=== PATIENT | female | born 1970 | race Caucasian/White ===

== ENCOUNTER 2023-09-17 11:39 | Outpatient (REF) | payer OTHER, SELFPAY ==
[2023-09-17 12:57] LABS: Appearance Urine Clear; Color Urine Yellow; Glucose Urine UA Negative (Negative); Leukocyte Esterase Urine Negative (Negative); Nitrite Urine Negative (Negative); Urine Blood Negative (Negative); Urine Ketones Negative (Negative); Urine Protein Negative (Neg-Trace)
== END 2023-09-17 11:40 | disposition home or self-care (01) ==
LOC: HO.HMGCLDS 11:39
PROVIDERS: PCP Internal Medicine; Visit Provider Internal Medicine
DX: R30.0 Dysuria (principal)
CPT/HCPCS: 81003

== ENCOUNTER 2023-11-16 07:52 | Outpatient (AMB) | payer OTHER, SELFPAY ==
--- NOTE | 2023-11-16 08:00 | MHC.PC.OV ---
Vital Signs 11/16/23 08:09 Height 5 ft 5.5 in Weight 143 lb BMI 23.4 BP 92/64 Blood Pressure Location Rt brachial Position Sitting Pulse 65 Pulse Source Pulse Oximeter Pulse Oximetry (%) 143 H Oxygen Delivery Method Room Air Intake Visit Reasons: PE Intake Note: Pt is here today for her PE: Colonoscopy 05/07/19: [place] 10/20/23 [facility] Care: Mammogram is scheduled for 11/17/23 [place] Allergies melon [MELON] Allergy (Severe, Unverified 11/16/23 08:18) ANAPHYLAXIS nitrofurantoin [From Macrobid] Allergy (Intermediate, Verified 11/16/23 08:18) Rash 1st Base Allergy (Unknown, Uncoded 11/16/23 08:18) anaphylaxis Medication List - Last Reconciled 11/16/23 by Toyin Ibarra MD mecobalamin (vitamin B12) mcg PO bhaxokgmenvo-adv-ektn-FA-vit K 45 mg iron- 800 mcg-120 mcg (Bariatric Multivitamins) caps PO semaglutide (weight loss) (Wegovy) mg subcut Tobacco use date assessed: 11/16/23 Dental Screening Dental Screen Date: 11/16/23 Did you have a dental visit in the last 12 months?: Yes Did you have a dental problem in the last 6 months where you did not have access to dental care?: No Was dental information given to patient?: Patient has dentist HPI PE HPI Details 53-year-old lady here today for physical exam. She gets her screening mammogram at [place], and has an appointment in a.m. for her repeat mammogram. She goes to [facility] for her cervical cancer screening , last done 10/20/23. Her last screening colonoscopy was [address] Hensley, which showed presence of diverticulosis, repeat colonoscopy due again in 5 years due to positive family history. She states that her bariatric surgery in [place] has referred her to [place] for an upper endoscopy and a screening colonoscopy for this year. She is up-to-date with all her vaccinations including COVID booster, flu shot shingles vaccine and Tdap. She had revision of her Homar-en-Y done at [facility] in [place], due to dumping syndrome and elevated blood sugars previously was on Saxenda to help with weight loss, later changed to Wegovy , which has helped her lose weight, currently prescribed by her bariatric surgeon. Only side effects she had from the medication was constipation. Has been feeling well, currently following a healthy diet and exercising. Only problem she has is that she has frequent interruptions in her sleep, would wake up 2-3 times at night. Has tried zolpidem in the past but it made her very drowsy. . 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 Mother CVD (cardiovascular disease) Cancer Aneurysm, ascending aorta Sister Substance use disorder Sister No problems noted. Social History Housing: House Patient Tobacco Use Status: Never used Tobacco e-Cigarette/Vaping Use: Never Used Current occupational status: employed Cognitive needs: No Hearing needs: No Vision needs: Yes Female Reproductive History Menstrual Date of last pap smear: 10/20/23 (Done in [place]) Questionnaire PHQ-9 Over the last 2 weeks, how often have you been bothered by any of the following problems? 1. Little interest or pleasure in doing things: not at all 2. Feeling down, depressed, or hopeless: not at all 3. Trouble falling or staying asleep, or sleeping too much: more than half the days 4. Feeling tired or having little energy: not at all 5. Poor appetite or overeating: not at all 6. Feeling bad about yourself - or that you are a failure or have let yourself or your family down: not at all 7. Trouble concentrating on things, such as reading the newspaper or watching television: not at all 8. Moving or speaking so slowly that other people could have noticed. Or the opposite - being so fidgety or restless that you have been moving around a lot more than usual: not at all 9. Thoughts that you would be better off or of hurting yourself in some way: not at all Total score: 2 Depression Screening Interpretation: Negative Depression Screening Done: Yes 91841 - PHQ-9 Billing: Yes Source: Developed by Drs. El Adair, Opal Awad, Abraham Parker and colleagues, with an educational emily from [employer]. Thrive Questionnaire Date Thrive assessed: 11/16/23 I am a: Patient What is your living situation today?: I have a steady place to live Within the past 12 months, did the food you bought not last and you didn't have the money to get more?: Never true Within the past 12 months, did you worry whether your food would run out before you got money to buy more?: Never true Do you have trouble paying for medicines?: No Do you have trouble getting transportation to medical appointments?: No Do you have trouble paying your heating and electricity bill?: No Do you have trouble taking care of your child, family member or friend?: No Do you have trouble with day-to-day activities such as bathing, preparing meals, shopping, managing finances, etc.?: No Are you currently unemployed and looking for a job?: No Are you interested in more education?: No Please select the resources that you would like help with: None THRIVE Score: 0 AUDIT C Alcohol Use Questionnaire (AUDIT-C) 1. How often do you have a drink containing alcohol?: Never 3. How often do you have six or more drinks on one occasion?: Never Total Score: 0 PINKY-7 AMB Questionnaire PINKY-7 Date PINKY - 7 assessed: 11/16/23 Feeling nervous, anxious, or on edge: 1 = Several days Not being able to stop or control worryin = Not at all Worrying too much about different things: 1 = Several days Trouble relaxin = Several days Being so restless that it is hard to sit still: 0 = Not at all Becoming easily annoyed or irritable: 0 = Not at all Feeling afraid as if something awful might happen: 1 = Several days Total PINKY-7 score (0-4 normal; 5-9 mild; 10-14 moderate; 15-21 severe): 4 Source: Developed by Drs. El Adair, Opal Awad, Abraham Parker and colleagues, with an educational emily from [employer]. PINKY-7 Assessment Billing PINKY-7 Assessment Tool: PINKY-7 Assessment 82343 Review of Systems Const Denies body aches, Reports difficulty sleeping (Has interrupted sleep, keeps waking up at least 2-3 times at night), Denies fatigue, Denies fever(s), Denies headache(s) and Denies weakness Eyes Details: Goes to [facility] Denies change in vision, Denies eye discharge and Denies itchy eyes ENT Denies dizziness, Denies headache(s), Denies nasal congestion, Denies nasal discharge and Denies sore throat Card Denies chest pain, Denies lightheadedness, Denies palpitations and Denies dyspnea Resp Denies chest congestion, Denies cough, Denies dyspnea and Denies wheezing GI Denies abdominal pain, Reports constipation (Occasional) and Denies heartburn Denies hematuria, Denies urinary frequency, Denies dysuria and Denies urinary urgency Musc Reports no additional complaints Skin/Breast Denies breast pain, Denies breast mass, Denies lesions and Denies rash Neuro Denies dizziness, Denies headache(s) and Denies weakness Psych Reports no additional complaints Endo Denies fatigue, Denies polydipsia, Denies polyuria and Denies palpitations Tico/Lymph Denies easy bruising Aller/Immun Denies itchy eyes, Denies seasonal rhinorrhea and Denies wheezing Physical exam (Primary Care) Vital Signs: Last Vital Signs Pulse 65 11/16/23 08:09 BP 92/64 11/16/23 08:09 Pulse Ox 143 H 11/16/23 08:09 Oxygen Delivery Method Room Air 11/16/23 08:09 BMI result Body Mass Index 23.4 Tobacco/Smoking Status: Tobacco use Status Tobacco use date assessed 11/16/23 11/16/23 08:11 Patient Tobacco Use Status Never used Tobacco 11/16/23 08:04 e-Cigarette/Vaping Use Never Used 11/16/23 08:04 Depression Screening Interpretation: Negative Thrive Assessment: Date of Thrive Assessment Date Thrive assessed 11/16/23 11/16/23 08:04 Const General: no acute distress and alert Nutritional Appearance: average body habitus Orientation/consciousness: patient oriented x3 HENMT Head: Yes normocephalic and Yes atraumatic Ears: external ears normal, TM's normal bilaterally and EAC's normal General nose exam: Normal external nose present and No nasal discharge present Face and sinus: Yes face symmetric Mouth: Normal oral and palatal mucosa present, lip normal, tongue normal, oropharynx normal and moist mucous membranes Eyes General: appearance normal, both eyes and all related structures Eyelids: Yes eyelids normal Conjunctivae: conjunctivae normal Sclerae: sclerae normal Pupils: Equal, round and reactive pupils present EOM: EOMs intact bilaterally Neck Neck: Yes full ROM, Yes no lymphadenopathy and Yes supple Thyroid: Thyroid normal Chest Breast/axilla inspection: normal inspection of the breasts Breast/axilla palpation: normal palpation of the breasts Resp Effort & Inspection: normal respiratory effort and able to speak in complete sentences Auscultation: clear to auscultation bilaterally Cardio Rate: regular rate Rhythm: regular rhythm Heart sounds: S1 normal heart sound present and S2 normal heart sound present GI Palpation (GI): Soft to palpation, nontender, no guarding and no masses Auscultation: normal bowel sounds General: Yes no CVA tenderness Back/Spine/Pelvis Back: no CVA tenderness and No back tenderness Skin General skin exam: no rashes or lesions noted Neuro General: patient oriented x3, gait normal, moves all extremities, Normal light touch and pain sensation, no focal motor deficits and CN's II-XI intact bilaterally Cranial nerves: Yes Equal, round and reactive pupils present Cognition (Neuro): normal cognition Gait exam (Neuro): Normal gait present Motor exam (neuro): 5/5 motor strength present throughout Extrem General: Yes normal to inspection, Yes full ROM, Yes no joint enlargement, Yes no pedal edema and Yes normal gait Psych Appearance: grossly normal and well kempt Mental Status: mental status grossly normal Speech and movement: Normal speech and movement present Affect: normal affect Attitude: cooperative Thought process: Normal thought process present Thought content: Normal thought content present Assessment and Plan Assessment & Plan (1) Annual visit for general adult medical examination with abnormal findings: Code(s): Z00.01 - Encounter for general adult medical examination with abnormal findings Plan: Patient states that her bariatric surgeon has already ordered labs which includes sugar cholesterol vitamin-D and B12, requested copy of results as soon as available. Continue regular dental visit every 6 months and regular eye exams, goes to my eye doctor in [place]. Take adequate calcium in diet and vitamin-D 3 at 2000 IU per cap once a day, in addition to weight-bearing exercises to help maintain good muscle tone and weight control. Instructed to do self-breast exam, and is up-to-date with her yearly mammogram, has an appointment already scheduled in a.m.. 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
[2023-11-16 08:09] VITALS: BP 92/64; PULSE 65; O2SAT 143; BMI 23.4
== END 2023-11-16 09:34 | disposition home or self-care (01) ==
PROVIDERS: PCP Internal Medicine; Visit Provider Internal Medicine
DX: Z00.01 Encounter for general adult medical examination with abnormal findings (principal); G47.9 Sleep disorder, unspecified; Z86.39 Personal history of other endocrine, nutritional and metabolic disease
CPT/HCPCS: 99213; 99396

== ENCOUNTER 2024-03-01 09:46 | Outpatient (AMB) | payer OTHER, SELFPAY ==
--- NOTE | 2024-03-01 09:56 | A.OFFVIS_ITS ---
Vital Signs 03/01/24 10:05 Height 5 ft 5.5 in Weight 150 lb BMI 24.6 BP 90/70 Blood Pressure Location Lt brachial Position Sitting Pulse 72 Pulse Source Pulse Oximeter Pulse Oximetry (%) 100 Oxygen Delivery Method Room Air Intake Visit Reasons: INP-Sleep disorder-CONF Intake Note: Patient presents for sleep disorder. Difficulty staying at sleep during the night. Wakes up to 3x to 4x a night. Vivid dreams regularly. Restless feet occasionally . Allergies melon [MELON] Allergy (Severe, Verified 03/01/24 10:04) ANAPHYLAXIS nitrofurantoin [From Macrobid] Allergy (Intermediate, Verified 03/01/24 10:04) Rash 1st Base Allergy (Unknown, Uncoded 11/16/23 08:18) anaphylaxis Medication List - Last Reconciled 03/01/24 by Nathalie Aguilar, CHAR mecobalamin (vitamin B12) mcg PO vfhtebrwikag-xqz-tfqt-FA-vit K 45 mg iron- 800 mcg-120 mcg (Bariatric Multivitamins) caps PO semaglutide (weight loss) (Wegovy) mg subcut HPI Comments Details: 53-yr-old female presents for new in-person patient visit for sleep consultation. She reports she has always been a light sleeper, prone to fragmented sleep, vivid dreams. This worsened about 10 yrs ago. She is not sure why, but she had undergone gastric bypass surgery around this time. She has tried a few sleep medications- ambien 5mg- ineffective, ambien 10mg x's 1 was effective, lunesta- ineffective, lorazepam- ineffective. Also tried doxepin 6mg x's 1- caused am grogginess. Melatonin ER 1/2 hr before bed- ineffective. Otherwise, she has been noticing worsening balance over the last few years. She does not think she could do a tandem walk. Denies falls, numbness/tingling, or h/o anemia. Sleep questionnaire: Have you ever been diagnosed with a sleep disorder? No Have you ever had a sleep study in the past? No Have you ever been treated for a sleep disorder? Do you take medications for a sleep disorder? None Do you snore? Denies Do you wake up gasping at night? No Do you have episodes of apneas? No If yes, are they witnessed? No Do you have episodes of nocturnal chest pain or dyspnea? No Do you have difficulty initiating sleep? No Do you have difficulty maintaining sleep? Yes- wakes up every 90 minutes or so- can fall back asleep. Do you wake up tired? I just not to . Do you have headaches upon awakening? No Do you wake up with dry mouth or throat? No Do you have GERD? No Do you have daytime tiredness or fatigue? Midday or end of work tiredness. Do you have nocturnal leg cramps? No Do you have symptoms of restless legs? Restless feet- in bed. Denies creepy crawling sensation. Do you act out your dreams? Denies Other parasomnias: Denies Vivid dreams: Yes, very vivid, can dream quickly upon falling asleep at night. Sleep hygiene questionnaire: What is your usual sleep routine? Usual bedtime is at 10pm; Usual wakeup time is at 6:15am. Do you take naps? No naps. Will rest for 1/2 hr after work at times. Is your sleep environment cool, dark, and quiet? Yes Do you exercise? Exercises after work- treadmill, light weight resistance. Do you take caffeine or other stimulants? A cup of coffee in the morning. Do you use electronics in bed? 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 What is your work schedule? 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 Hypersomnolence questionnaire: Do you easily fall asleep when inactive? Can easily doze off- rests her eyes. Have you ever had episodes of sudden weakness? No Have you ever had episodes of sudden weakness associated with strong emotions? 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 Mother CVD (cardiovascular disease) Cancer Aneurysm, ascending aorta Sister Substance use disorder Sister No problems noted. Social History Housing: House Patient Tobacco Use Status: Never used Tobacco e-Cigarette/Vaping Use: Never Used Current occupational status: employed Cognitive needs: No Hearing needs: No Vision needs: Yes Review of Systems Const All systems reviewed & are unremarkable except as noted in HPI and below GI Reports constipation Psych Reports anxiety Physical Exam Vital Signs: Last Vital Signs Pulse 72 03/01/24 10:05 BP 90/70 03/01/24 10:05 Pulse Ox 100 03/01/24 10:05 Oxygen Delivery Method Room Air 03/01/24 10:05 BMI result Body Mass Index 24.6 Const General: no acute distress Orientation/consciousness: patient oriented x3 HEENT Other: Mallampati stage III Resp Effort & Inspection: able to speak in complete sentences Neuro General: patient oriented x3 Psych Mental Status: mental status grossly normal Speech and movement: Clear speech present Attitude: cooperative Telehealth Telehealth Location of provider rendering services: practice address Location of patient: address on file Patient Identification confirmed using: Name, : Yes Telehealth method: voice only Patient verbally consented to treatment: Yes Patient verbally consented to billing insurance company: Yes Patient informed of any privacy concerns related to visit: Yes Assessment & Plan Assessment & Plan (1) 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 If HST does not show sleep apnea, will schedule pt for in-lab PSG, ? MSLT. Pt may benefit from reading information on optimizing sleep hygiene- list of CBTi/sleep hygiene resources shared w/ pt. Monitor balance difficulties. Case d/w Dr Misty Metzger. 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 G47.9 Excessive daytime sleepiness G47.19 Sleep difficulties G47.9 [place] Sleepiness Scale Questions Sitting and reading: slight chance of dozing Watching TV: high chance of dozing Sitting inactive in a theater, movie etc.: moderate chance of dozing As a passenger in a car for an hour without break: moderate chance of dozing Lying down in the afternoon when circumstances permit: moderate chance of dozing Sitting and talking to someone: would never doze Sitting quietly after lunch without alcohol: moderate chance of dozing In a car, while stopped for a few minutes in the traffic: would never doze ESS < 10: normal, ESS > 12: pathologic: 12
[2024-03-01 10:05] VITALS: BP 90/70; PULSE 72; O2SAT 100; BMI 24.6
== END 2024-03-01 11:16 | disposition home or self-care (01) ==
PROVIDERS: PCP Internal Medicine; Visit Provider Nurse Practitioner Family
DX: G47.9 Sleep disorder, unspecified (principal); G47.19 Other hypersomnia
CPT/HCPCS: 99204

== ENCOUNTER → 2024-03-01 09:46 | Outpatient (BNVA) | payer OTHER, SELFPAY | PROVIDERS: PCP Internal Medicine; Visit Provider Nurse Practitioner Family ==

== ENCOUNTER → 2024-05-02 07:57 | Outpatient (REF) | payer OTHER, SELFPAY | LOC: HO.SL 07:57 | PROVIDERS: Visit Provider Nurse Practitioner Family | DX: G47.9 Sleep disorder, unspecified (principal); G47.19 Other hypersomnia; R06.83 Snoring | CPT/HCPCS: 95806 ==

== ENCOUNTER → 2024-05-02 08:05 | Outpatient (BNV) | payer OTHER, SELFPAY | PROVIDERS: Visit Provider Psychiatry & Neurology Neurology | DX: R06.83 Snoring (principal) | CPT/HCPCS: 95806 ==

== ENCOUNTER 2025-02-28 10:08 | Outpatient (AMB) | payer OTHER, SELFPAY ==
--- NOTE | 2025-02-28 10:15 | MHC.PC.OV ---
Vital Signs 02/28/25 10:17 Height 5 ft 5.5 in Weight 158 lb BMI 25.9 BP 102/84 Blood Pressure Location Lt brachial Position Sitting Respiration 12 Pulse 66 Pulse Source Pulse Oximeter Temp 98.2 F Temp Source Oral Pulse Oximetry (%) 98 Oxygen Delivery Method Room Air Intake Visit Reasons: PE Intake Note: Pt is here today for her PE Allergies melon [MELON] Allergy (Severe, Verified 02/28/25 10:42) ANAPHYLAXIS nitrofurantoin [From Macrobid] Allergy (Intermediate, Verified 02/28/25 10:42) Rash 1st Base Allergy (Unknown, Uncoded 02/28/25 10:42) anaphylaxis Medication List - Last Reconciled 02/28/25 by Toyin Ibarra MD mecobalamin (vitamin B12) mcg PO kvcbhifhwnzk-oqb-queb-FA-vit K 45 mg iron- 800 mcg-120 mcg (Bariatric Multivitamins) caps PO semaglutide (weight loss) (Wegovy) mg subcut Tobacco use date assessed: 02/28/25 Dental Screening Dental Screen Date: 02/28/25 Did you have a dental visit in the last 12 months?: Yes Did you have a dental problem in the last 6 months where you did not have access to dental care?: No Was dental information given to patient?: Patient has dentist HPI PE HPI Details 58-year-old lady here today for her physical exam. She is up-to-date with her screening mammogram [facility] the [facility] in [place] with last mammogram done November 2024 with benign findings. She goes to Dr. Carolina Hope's for her routine Pap and pelvic exam, last done a year ago per patient which came back with negative findings, copy of results requested. She also states that she had her colonoscopy done in clinic at last year which showed benign findings, copy of results requested . 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 Mother CVD (cardiovascular disease) Cancer Aneurysm, ascending aorta Sister Substance use disorder Sister No problems noted. Social History Housing: House Patient Tobacco Use Status: Never used Tobacco e-Cigarette/Vaping Use: Never Used Current occupational status: employed Cognitive needs: No Hearing needs: No Vision needs: Yes Questionnaire PHQ-9 Over the last 2 weeks, how often have you been bothered by any of the following problems? 1. Little interest or pleasure in doing things: not at all 2. Feeling down, depressed, or hopeless: not at all 3. Trouble falling or staying asleep, or sleeping too much: several days 4. Feeling tired or having little energy: not at all 5. Poor appetite or overeating: not at all 6. Feeling bad about yourself - or that you are a failure or have let yourself or your family down: several days 7. Trouble concentrating on things, such as reading the newspaper or watching television: several days 8. Moving or speaking so slowly that other people could have noticed. Or the opposite - being so fidgety or restless that you have been moving around a lot more than usual: not at all 9. Thoughts that you would be better off or of hurting yourself in some way: not at all Total score: 3 Depression Screening Interpretation: Negative Depression Screening Done: Yes 31283 - PHQ-9 Billing: Yes Source: Developed by Drs. El Adair, Opal Awad, Abraham Parker and colleagues, with an educational emily from [employer]. Thrive Questionnaire Date Thrive assessed: 02/22/25 I am a: Patient What is your living situation today?: I have a steady place to live Within the past 12 months, did the food you bought not last and you didn't have the money to get more?: Never true Within the past 12 months, did you worry whether your food would run out before you got money to buy more?: Never true Do you have trouble paying for medicines?: No Do you have trouble getting transportation to medical appointments?: No Do you have trouble paying your heating and electricity bill?: No Do you have trouble taking care of your child, family member or friend?: No Do you have trouble with day-to-day activities such as bathing, preparing meals, shopping, managing finances, etc.?: No Are you currently unemployed and looking for a job?: No Are you interested in more education?: No Please select the resources that you would like help with: None Currently or been in a relationship where the following occur: No concerns reported THRIVE Score: 0 AUDIT C Alcohol Use Questionnaire (AUDIT-C) 1. How often do you have a drink containing alcohol?: Monthly or less 2. How many drinks containing alcohol do you have on a typical day when you are drinking?: 1 or 2 3. How often do you have six or more drinks on one occasion?: Never Total Score: 1 PINKY-7 AMB Questionnaire PINKY-7 Date PINKY - 7 assessed: 02/28/25 Feeling nervous, anxious, or on edge: 3 = Nearly every day Not being able to stop or control worryin = More than half the days Worrying too much about different things: 2 = More than half the days Trouble relaxin = Nearly every day Being so restless that it is hard to sit still: 0 = Not at all Becoming easily annoyed or irritable: 1 = Several days Feeling afraid as if something awful might happen: 2 = More than half the days Total PINKY-7 score (0-4 normal; 5-9 mild; 10-14 moderate; 15-21 severe): 13 Source: Developed by Drs. El Adair, Opal Awad, Abraham Parker and colleagues, with an educational emily from [employer]. PINKY-7 Assessment Billing PINKY-7 Assessment Tool: PINKY-7 Assessment 17061 Review of Systems Const Reports no additional complaints Eyes Details: [facility] in [place], wears reading glasses ENT Details: Dental prophylaxis every 6 month Reports no additional complaints Card Reports no additional complaints Resp Reports no additional complaints GI Details: 04/17/[address] [place] normal per patient Reports no additional complaints Details: last pap smear 2023 , Dr Carolina Adkins in [place] in [place], has appt next month Reports no additional complaints Musc Reports no additional complaints Skin/Breast Denies breast pain, Denies breast mass and Denies rash Neuro Reports no additional complaints Psych Reports as per HPI Endo Reports no additional complaints Tico/Lymph Reports no additional complaints Aller/Immun Reports no additional complaints Physical exam (Primary Care) Vital Signs: Last Vital Signs Temp 98.2 F 02/28/25 10:17 Pulse 66 02/28/25 10:17 Resp 12 02/28/25 10:17 BP 102/84 02/28/25 10:17 Pulse Ox 98 02/28/25 10:17 Oxygen Delivery Method Room Air 02/28/25 10:17 BMI result Body Mass Index 25.9 Tobacco/Smoking Status: Tobacco use Status Tobacco use date assessed 02/28/25 02/28/25 10:19 Patient Tobacco Use Status Never used Tobacco 02/28/25 10:19 e-Cigarette/Vaping Use Never Used 02/28/25 10:19 PHQ-9: PHQ-9 Score PHQ-9: Total score 4 02/28/25 12:30 Depression Screening Interpretation: Negative Thrive Assessment: Date of Thrive Assessment Date Thrive assessed 02/22/25 02/28/25 10:19 Currently or been in a relationship where the following occur: No concerns reported Advance Care Planning discussion: Completed/Scanned Date of discussion: 02/28/25 Who was present: Patient Forms completed: Health Care Proxy Time spent: 16-45 minutes Actual minutes spent: 2 Const General: no acute distress and alert Nutritional Appearance: average body habitus Orientation/consciousness: patient oriented x3 HENMT Head: Yes normocephalic Ears: external ears normal, TM's normal bilaterally and EAC's normal General nose exam: Normal external nose present and No nasal discharge present Face and sinus: Yes face symmetric Mouth: Normal oral and palatal mucosa present, lip normal, tongue normal, oropharynx normal and moist mucous membranes Eyes General: appearance normal, both eyes and all related structures Eyelids: Yes eyelids normal Conjunctivae: conjunctivae normal Sclerae: sclerae normal Pupils: Equal, round and reactive pupils present EOM: EOMs intact bilaterally Neck Neck: Yes full ROM, Yes no lymphadenopathy and Yes supple Thyroid: Thyroid normal Chest Breast/axilla inspection: normal inspection of the breasts Breast/axilla palpation: normal palpation of the breasts Resp Effort & Inspection: normal respiratory effort and able to speak in complete sentences Auscultation: clear to auscultation bilaterally Cardio Rate: regular rate Rhythm: regular rhythm Heart sounds: S1 normal heart sound present and S2 normal heart sound present GI Palpation (GI): Soft to palpation, nontender, no guarding and no masses Auscultation: normal bowel sounds General: Yes no CVA tenderness Back/Spine/Pelvis Back: no CVA tenderness and No back tenderness Skin General skin exam: no rashes or lesions noted Neuro General: patient oriented x3, gait normal, moves all extremities, Normal light touch and pain sensation, no focal motor deficits and CN's II-XI intact bilaterally Cranial nerves: Yes Equal, round and reactive pupils present Cognition (Neuro): normal cognition Gait exam (Neuro): Normal gait present Motor exam (neuro): 5/5 motor strength present throughout Extrem General: Yes normal to inspection, Yes full ROM, Yes no joint enlargement, Yes no pedal edema and Yes normal gait Psych Appearance: grossly normal and well kempt Mental Status: mental status grossly normal Speech and movement: Normal speech and movement present Affect: normal affect Attitude: cooperative Thought process: Normal thought process present Thought content: Normal thought content present Coding Level of Care Code Est Pt Prev Care 40-64y(49608) Diagnoses Annual visit for general adult medical examination with abnormal findings Z00.01 Osteopenia of lumbar spine M85.88 History of Homar-en-Y gastric bypass Z98.84 Generalized anxiety disorder F41.1 Encounter for counseling regarding advance directives Z71.89 Additional Codes PINKY-7 Assessment Billing - PINKY-7 Assessment Tool: PINKY-7 Assessment 43614 ([id number]) PHQ-9 - 06626 - PHQ-9 Billing: Yes ([id number]) Vital Signs *Quality* - Advance Care Planning discussion: Completed/Scanned ([id number]) Vital Signs *Quality* - Time spent: 16-45 minutes ([id number]) Assessment & Plan Assessment & Plan (1) Annual visit for general adult medical examination with abnormal findings: Code(s): Z00.01 - Encounter for general adult medical examination with abnormal findings Plan: Will check appropriate labs. Recommended dental visit every 6 months and regular eye exams, at least every 2 years. Continue taking calcium from dietary sources , and continue with vitamin-D 3 at 2000 IU per cap once a day, in addition to weight-bearing exercises to help maintain good muscle tone and weight control. Continue to do self-breast exam, and continue to get yearly mammogram [facility], copy of results requested she also had her colonoscopy done last year in [place] with a negative results. Up-to-date with her shingles vaccine Tdap, reminded to get her yearly flu shot and COVID. (2) Osteopenia of lumbar spine: Code(s): M85.88 - Other specified disorders of bone density and structure, other site Category: Medical Plan: Will check vitamin-D level and ordered a repeat bone density scan (3) History of Homar-en-Y gastric bypass: Comment: [address] [place] Code(s): Z98.84 - Bariatric surgery status Category: Surgical Plan: Will check vitamin-D, vitamin B12 level how together acid and CBC (4) Generalized anxiety disorder: Code(s): F41.1 - Generalized anxiety disorder Category: Medical Plan: Started on buspirone 5 mg 1 tablet 3 times a day. Follow-up in 4 weeks (5) Encounter for counseling regarding advance directives: Code(s): Z71.89 - Other specified counseling Plan: Initiated the conversation about Advanced Directives. Advanced Directives help patients prepare for current and future decisions about their medical treatment and place of care. Discussed with patient that it is a process where a patients current condition and prognosis are reviewed, their wishes for information regarding their illness are elicited, and likely medical dilemmas are presented and options discussed. Healthcare proxy form completed today. The form can be amended as needed, reviewed yearly and make changes as needed Orders: Orders Complete Blood Count Auto Diff 03/02/25 Z87.19 - Personal history of other diseases of the digestive system, Z98.84 - Bariatric surgery status, M85.88 - Other specified disorders of bone density and structure, other site, G47.9 - Sleep disorder, unspecified, F41.1 - Generalized anxiety disorder, Z71.89 - Other specified counseling, Z00.01 - Encounter for general adult medical examination with abnormal findings Comprehensive Burns. Panel Fast 03/02/25 Z87.19 - Personal history of other diseases of the digestive system, Z98.84 - Bariatric surgery status, M85.88 - Other specified disorders of bone density and structure, other site, G47.9 - Sleep disorder, unspecified, F41.1 - Generalized anxiety disorder, Z71.89 - Other specified counseling, Z00.01 - Encounter for general adult medical examination with abnormal findings Lipid Panel 03/02/25 Z87.19 - Personal history of other diseases of the digestive system, Z98.84 - Bariatric surgery status, M85.88 - Other specified disorders of bone density and structure, other site, G47.9 - Sleep disorder, unspecified, F41.1 - Generalized anxiety disorder, Z71.89 - Other specified counseling, Z00.01 - Encounter for general adult medical examination with abnormal findings TSH reflex Free T4 03/02/25 Z87.19 - Personal history of other diseases of the digestive system, Z98.84 - Bariatric surgery status, M85.88 - Other specified disorders of bone density and structure, other site, G47.9 - Sleep disorder, unspecified, F41.1 - Generalized anxiety disorder, Z71.89 - Other specified counseling, Z00.01 - Encounter for general adult medical examination with abnormal findings XR DEXA axial skeleton 02/28/25 M85.88 - Other specified disorders of bone density and structure, other site, Z78.0 - Asymptomatic menopausal state, Z98.84 - Bariatric surgery status, Z87.19 - Personal history of other diseases of the digestive system Vitamin B12 and Folate 03/02/25 Z87.19 - Personal history of other diseases of the digestive system, Z98.84 - Bariatric surgery status, M85.88 - Other specified disorders of bone density and structure, other site, G47.9 - Sleep disorder, unspecified, F41.1 - Generalized anxiety disorder, Z71.89 - Other specified counseling, Z00.01 - Encounter for general adult medical examination with abnormal findings Vitamin D 25-OH Total 03/02/25 Z87.19 - Personal history of other diseases of the digestive system, Z98.84 - Bariatric surgery status, M85.88 - Other specified disorders of bone density and structure, other site, G47.9 - Sleep disorder, unspecified, F41.1 - Generalized anxiety disorder, Z71.89 - Other specified counseling, Z00.01 - Encounter for general adult medical examination with abnormal findings Medications: Refilled buspirone 5 mg PO TID 90 tabs 1RF F41.1 - Generalized anxiety disorder
[2025-02-28 10:17] VITALS: BP 102/84; PULSE 66; RESP 12; TEMP 36.8; O2SAT 98; BMI 25.9
--- OUTSIDE RECORDS SUMMARY | 2025-02-28 10:31 | XMS_ITS | Clinical Summary ---
Author Organization [address] Address [address] [place] [id number] Phone Care Team Providers Care Sports Medicine Specialist Name Role Phone Toyin Ibarra MD Primary Care Provider [phone] Allergies Active Allergy Reactions Criticality Noted Date Comments Ragweed Pollen Anaphylaxis High 05/02/2022 Short Ragweed Pollen Ext Medications EPINEPHrine (EPIPEN) 0.3 mg/0.3 mL injection Inject 0.3 mL (0.3 mg total) into the muscle. 07/07/2018 Active loratadine 10 mg capsule Take by mouth daily. Active doxepin (SILENOR) 6 mg tablet take 1 tablet by mouth every day at bedtime as needed sleep 01/09/2024 Active semaglutide (WEGOVY) 1.7 mg/0.75 mL injection penIndications: History of obesity Inject 1.7 mg under the skin every 7 (seven) days. 3 mL 3 12/13/2024 5 Active Active Problems Problem Noted Date Diagnosed Date Epigastric pain 11/14/2023 RLQ abdominal pain 11/14/2023 Snoring 05/25/2022 Insomnia 05/25/2022 Papanicolaou smear of cervix with low grade squamous intraepithelial lesion (LGSIL) 01/05/2016 Overview (06/05/2024): Last Assessment & Plan: Check repeat pap If stable or improved repeat pap at annual in 6 months Low back pain with sciatica 12/01/2015 Encounters Date Type Department Care Team Description 12/13/2024 10:30 AM EST Office Visit Bariatric Surgery - [place] [address] [facility] [address] [place] [address] Lizbeth Reynolds PA History of obesity (Primary Dx) from Last 3 Months Surgical History Surgery Date Site/Laterality Comments BARIATRIC SURGERY 2011 PROCEDURE:BARIATRIC SURGERY BREAST BIOPSY PROCEDURE:BREAST BIOPSY UPPER GASTROINTESTINAL ENDOSCOPY 06/01/2022 N/A PROCEDURE:UPPER GASTROINTESTINAL ENDOSCOPY;COMMENT:Procedure: EGD WITH BIOPSY; Surgeon: Derek Garcia MD; Location: [facility]; Service: Bariatrics; Laterality: N/A; GASTROJEJUNOSTOMY 2022 N/A PROCEDURE:GASTROJEJUNOSTOMY;C OMMENT:Procedure: REVISION GASTROJEJUNOSTOMY; Surgeon: Derek Garcia MD; Location: [facility]; Service: Bariatrics; Laterality: N/A; UPPER GASTROINTESTINAL ENDOSCOPY 2022 N/A PROCEDURE:UPPER GASTROINTESTINAL ENDOSCOPY;COMMENT:Procedure: OVERSTITCH WITH EGD WITH ABLATION (41958); Surgeon: Derek Garcia MD; Location: [facility]; Service: Bariatrics; Laterality: N/A; GASTRIC BYPASS 10/2011 Medical History Medical History Date Comments Fibroadenoma of breast DX:Fibroa denoma of breast;COMMENT:s/p biopsy Angina pectoris (CMS/HCC V24) DX :Angina pectoris ([facility]);COMMENT: tightness in chest Urinary tract infection DX:Urina ry tract infection Visual impairment DX:Visual impa irment;COMMENT:glasses Anxiety DX:Anxiety Sciatica DX:Sciatica;COMM ENT:over 10 years ago Obesity Family History Medical History Relation Name Comments Alcohol abuse Father Keegan Stroke Father Keegan Aortic aneurysm Mother [place] Breast cancer Mother America Cancer Mother America kidney and [address] cancer Cervical cancer Neg Hx Colon cancer Neg Hx Ovarian cancer Neg Hx Uterine cancer Neg Hx Relation Name Status Comments Father Keegan Mother [place] Alive Social History Tobacco Use Types Packs/Day Years Used Date Smoking Tobacco: Never Smokeless Tobacco: Never Tobacco Cessation:Counseling Given: Not Answered Alcohol Use Standard Drinks/Week Comments Not Currently 0 (1 standard drink = 0.6 oz pur e alcohol) Comments Unknown Sex and Gender Information Value Date Recorded Sex Assigned at Not on file Legal Sex Female 1:10 PM EST Gender Identity Not on file Sexual Orientation Not on file Obstetrics History Last Filed Vital Signs Vital Sign Reading Time Taken Comments Blood Pressure 112/78 12/13/2024 10:14 AM EST Pulse 71 12/13/2024 10:14 AM EST Temperature - - Respiratory Rate - - Oxygen Saturation - - Inhaled Oxygen Concentration - - Weight 69.9 kg (154 lb) 12/13/2024 10:14 AM EST Height 166.4 cm (5' 5.5 ) 12/13/2024 10:14 AM ES T Body Mass Index 25.24 12/13/2024 10:14 AM EST Plan of Treatment Upcoming Encounters Date Type Department Care Team (Late st Contact Info) Description 04/16/2025 11:30 AM EDT Office Visit Bariatric Surgery - [place] [address] [phone] Lizbeth Reynolds PA [address] [address] Health Maintenance Due Date Last Done Comments Breast Cancer Screening 1968 Hepatitis B Vaccines (1 of 3 - 19+ 3-dose series) 1987 Pneumococcal Vaccine: 50+ Years (1 of 1 - PCV) 2018 Zoster Vaccines (1 of 2) 2018 DTaP,Tdap,and Td Vaccines (2 - Td or Tdap) 06/02/2019 06/02/2009 Colorectal Cancer Screening: Colonoscopy 09/18/2022 Depression Screening 09/18/2022 HIV Screening 09/18/2022 Hepatitis C Screening 09/18/2022 Social Influencers of Health Screening 09/18/2022 COVID-19 Vaccine (2 - Modern a risk series) 08/20/2023 07/23/2023 Influenza Vaccine (Season Ended) 2025 Cholesterol Screening (Lipid Panel) 11/22/2027 11/22/2022, 11/22/2022 Cervical Cancer Screening: HPV 10/20/2028 10/20/2023 HIB Vaccines Aged Out No longer eligi ble based on patient's age to complete this topic HPV Vaccines Aged Out No longer eligi ble based on patient's age to complete this topic Hepatitis A Vaccines Aged Out No long er eligible based on patient's age to complete this topic IPV Vaccines Aged Out No longer eligi ble based on patient's age to complete this topic MMR Vaccines Aged Out No longer eligi ble based on patient's age to complete this topic Meningococcal ACWY Vaccine Aged Out N o longer eligible based on patient's age to complete this topic Meningococcal B Vaccine Aged Out No l onger eligible based on patient's age to complete this topic Pneumococcal Vaccine: Pediatrics (0 to 5 Years) and At-Risk Patients (6 to 64 Years) Aged Out No longer eligible b ased on patient's age to complete this topic RSV Immunization Patients Under 20 months Aged Out No longer eligible b ased on patient's age to complete this topic Varicella Vaccines Aged Out No longer eligible based on patient's age to complete this topic Medical Devices Implanted Type Area Director Of Elementary Education Device Identifier Shelf Expiration Date Model / Serial / Lot Sut Polyprp 2-0 Overstitch Apol-Manu [id number] Implanted:Qty: 1 on 2022 by Derek Garcia MD N/A: Mouth [employer] 06/22/2026 [id number] Procedures Procedure Name Priority Date/Time Associated Diagnosis Comments HPV Routine 10/20/2023 LIPID PANEL Routine 11/22/2022 from Last 3 Months or Most Recently Relevant to Health Maintenance Results * Cervical Cancer Screening: HPV (10/20/2023) Pathologist [facility] Cervical Cancer Screening: HPV No interpreation, abstracted Historical Provider HEALTH MAINTENANCE Final Result * (ABNORMAL) Lipid panel (11/22/2022) [facility] Triglycerides 98 <=150 mg/dL Cholesterol 204(A) 0 - 200 mg/dL HDL 63 37 - 92 mg/dL LDL Cholesterol 121 50 - 130 mg/dL Blood Venous blood specimen / Unknown Historical Provider LAB BLOOD ORDERABLES Rehana l Result from Last 3 Months or Most Recently Relevant to Health Maintenance Insurance [facility] Care Teams Sports Medicine Specialist Relationship Specialty Start Date End Date Toyin Ibarra MD [address] [facility] [place] [id number] PCP - General Internal Medicine 05/27/22
--- OUTSIDE RECORDS SUMMARY | 2025-02-28 10:31 | XMS_ITS ---
Author Name [facility] Organization Unknown Results Test Name/Text Value Interpretation Date Range Source VITAMIN C 12 Normal [id number] [facility] VITAMIN B1 (THIAMINE) 58 Normal [id number] [facility] RBC NO. BLD AUTO 4.49M/uL Normal [id number] 4.2 - 5.4 [facility] EOSINOPHIL NFR BLD AUTO 1.1% Normal [id number] 0 - 6 [facility] NEUTROPHILS NO. BLD AUTO 2.3K/uL Normal [id number] 1. 8 - 7.8 [facility] MONOCYTES NFR BLD AUTO 5.7% Normal [id number] 2 - 12 [facility] MONOCYTES NO. BLD AUTO 0.3K/uL Normal [id number] 0 - 0.8 [facility] EOSINOPHIL NO. BLD AUTO 0.1K/uL Normal [id number] 0 - 0.5 [facility] RDW RBC AUTO RTO 13% Normal [id number] 12.1 - 16. 2 [facility] HGB BLD MCNC 14.3g/dL Normal [id number] 12.5 - 16 [facility] HCT VFR BLD AUTO 40.2% Normal [id number] 37 - 47 [facility] LYMPHOCYTES NFR BLD AUTO 43.2% Normal [id number] 20 - 48 [facility] MCHC RBC AUTO MCNC 35.5g/dL Normal [id number] 32 - 36 [facility] WBC NO. BLD AUTO 4.8K/uL Normal [id number] 4 - 10.5 [facility] PMV BLD AUTO 8.8fL Normal [id number] 7.4 - 11.4 [facility] BASOPHILS IN BLOOD BY AUTOMATED COUNT 0K/uL Normal [id number] 0 - 0.2 [facility] MCV RBC AUTO 89.4fL Normal [id number] 78 - 100 [facility] BASOPHILS NFR BLD AUTO 0.6% Normal [id number] 0 - 2 [facility] PLATELET NO. BLD AUTO 277K/uL Normal [id number] 150 - 450 [facility] DIFFERENTIAL TYPE AUTOMATED Normal [id number] [facility] MCH RBC QN AUTO 31.7pg Normal [id number] 25 - 33 [facility] NEUTROPHILS NFR BLD AUTO 49.4% Normal [id number] 44 - 74 [facility] LYMPHOCYTES NO. BLD AUTO 2.1K/uL Normal [id number] 1 - 3.2 [facility] IRON SATN MFR SERPL 36% Normal [id number] 20 - 45 [facility] TIBC SERPL MCNC 411ug/dL Normal [id number] 250 - 450 [facility] UIBC SERPL MCNC 261ug/dL Normal [id number] 155 - 355 [facility] IRON SERPL MCNC 150mcg/dL Normal [id number] 37 - 170 [facility] PROT SERPL MCNC 6.5g/dL Normal [id number] 6.4 - 8.5 [facility] BILIRUB SERPL MCNC 0.7mg/dL Normal [id number] 0.3 - 1 [facility] ANION GAP SERPL SCNC 8mmol/L Normal [id number] 5 - 14 [facility] POTASSIUM SERPL SCNC 4.5mmol/L Normal [id number] 3.5 - 5.1 [facility] GLUCOSE SERPL MCNC 87mg/dL Normal [id number] 70 - 199 [facility] Glomerular filtration rate/1.73 sq M. predicted 87 Normal [id number] 60 - [facility] SODIUM SERPL SCNC 141mmol/L Normal [id number] 135 - 145 [facility] CALCIUM SERPL MCNC 9.5mg/dL Normal [id number] 8.4 - 10 .2 [facility] ALP SERPL-CCNC 66U/L Normal [id number] 34 - 104 [facility] CHLORIDE SERPL SCNC 103mmol/L Normal [id number] 98 - 10 7 [facility] ALBUMIN SERPL BCG MCNC 4.5g/dL Normal [id number] 3.5 - 5 [facility] AST SERPL CCNC 15U/L Normal 5 - 40 [facility] ALT SERPL CCNC 18U/L Normal 7 - 52 [facility] CREAT SERPL MCNC 0.8mg/dL Normal 0.5 - 1 [facility] BUN SERPL MCNC 13mg/dL Normal 7 - 17 [facility] HCO3 SER SCNC 30mmol/L Normal 24 - 32 [facility] VIT B12 SER MCNC 4424pg/mL Above high normal 18 0 - 914 [facility] 25(OH)D3+25(OH)D2 SerPl IA-mCnc 46ng/mL Normal 30 - 100 [facility] History of Medication Use Medication Directions Dispensed Refills Start Date End Date Stat semaglutide (WEGOVY) 1.7 mg/0.75 mL injection pen Inject 1.7 mg under the skin every 7 (seven) days. 09/14/2024 active sodium chloride 0.9% (NS) infusion 75 mL/hr, Intravenous, Continuous, Starting on Tue04/17/24 at 0830, Pre-Procedure (GI) 04/17/2024 active doxepin (SILENOR) 6 mg tablet take 1 tablet by mouth every day at bedtime as needed sleep 01/09/2024 active EPINEPHrine 0.3 mg/0.3 mL IJ auto-injection Inject 0.3 mL (0.3 mg total) into the shoulder, thigh, or buttocks once as needed for anaphylaxis. 04/01/2017 active levonorgestrel (MIRENA) 20 mcg/24hr IUD by Intrauterine route. active cyanocobalamin (CVS VITAMIN B-12) 1000 MCG tablet Take by mouth. active EpiPen 0.3 mg/0.3 mL injection, auto-injector Take by injection route. Take by injection route. completed loratadine 10 mg capsule Take by mouth daily. active Problems Problem Status Onset Date Problem Type Date of Resolution Source RLQ abdominal pain active 2023-11-14 ProblemAct [facility] Epigastric pain active 2023-11-[address] [facility] History of obesity active EncounterDiagnosisAct [facility] Snoring active 2022-05-25 ProblemAct [facility] Papanicolaou smear of cervix with low grade squamous intraepithelial lesion (LGSIL) active 2016-01-05 ProblemAct [facility] Insomnia active 2022-05-25 ProblemAct [facility] Low back pain with sciatica active 2015-12-01 ProblemAct [facility] Weight gain following gastric bypass surgery active 2015-12-01 ProblemAct [facility] Gastric bypass status for obesity active 2015-12-01 ProblemAct [facility] Encounter for weight management active EncounterDiagnosisAct [facility] Encounters Encounter Type Encounter Reason Primary Diagnosis Location Date Ambulatory Weight Management Weight Management [facility] 12/13/2024 Ambulatory SCREENING SCREENING [facility] 11/27/2024 Ambulatory Weight Management Weight Management [facility] 09/14/2024 Ambulatory Epigastric pain Epigastric pain [employer] 04/17/2024 Ambulatory Consult Consult [facility] 01/13/2024 Ambulatory Abnormal weight gain Abnormal we ight gain [facility] 12/07/2023 Ambulatory BREAST CA SCREENING BREAST CA SCREENING P [facility] 11/17/2023 Ambulatory Encntr for fork assembler exam (general) (routine) w/o abn findings [facility] 10/20/2023 Ambulatory [facility] 09/15/2022 Ambulatory [facility] 03/18/2022 Care Team Organization Name Specialty Phone Email Start Date End Da te [facility] 12/19/2024 02/25/2025 [facility] 09/17/2024 [facility]2024 [employer] [facility] Primary Care 01/13/2024 12/26/2024 [facility] Primary Care 12/07/2023 [facility] 11/17/2023 [employer] [facility] Primary Care 11/02/2023 [facility] No provided Primary Care 10/24/2023 10/24/2023 [facility] provided No Primary Care 09/05/2023 02/25/2025 [facility] Primary Care 09/15/2022 02/25/2025 [facility] Primary Care 09/15/2022 09/15/2022 [facility] 03/23/2022 [facility] 03/18/202203/18
--- OUTSIDE RECORDS SUMMARY | 2025-02-28 10:31 | XMS_ITS | Encounter Summary ---
Author Organization [facility] Address [address] [place] [address] Care Team Providers Care Director Of Religious Activities Name Role Phone Luann Tamayo MD Primary Care Provider [phone] Toyin Ibarra MD Primary Care Provider [phone] Encounter Details Date Type Department Care Team (Late st Contact Info) Description 05/15/2018 Scanned Document [facility] Bariatric Surgery [place] [phone] Pcp, No Social History Tobacco Use Types Packs/Day Years Used Date Smoking Tobacco: Never Smokeless Tobacco: Never Alcohol Use Standard Drinks/Week Comments Yes 0 (1 standard drink = 0.6 oz pur e alcohol) Comments No Sex and Gender Information Value Date Recorded Sex Assigned at Female 01/10/2024 5:10 PM EDT Legal Sex Female 10:52 AM EDT Gender Identity Female 03/18/2022 3:04 PM EDT Sexual Orientation Not on file documented as of this encounter Plan of Treatment Not on file documented as of this encounter Visit Diagnoses Not on filedocumented in this encounter Care Teams Director Of Religious Activities Relationship Specialty Start Date End Date Luann Tamayo MD [address] [place] [address] PCP - General Internal Medicine 04/01/17 11/01/23 Toyin Ibarra MD [address] [place] [address] PCP - General Internal Medicine 11/02/23 documented as of this encounter
--- OUTSIDE RECORDS SUMMARY | 2025-02-28 10:31 | XMS_ITS | Clinical Summary ---
Author Organization [facility] Address [address] [place] [address] Care Team Providers Care Leather Piece Inspector Name Role Phone Toyin Ibarra MD Primary Care Provider Allergies No known active allergies Medications EPINEPHrine 0.3 mg/0.3 mL IJ auto-injection Inject 0.3 mL (0.3 mg total) into the shoulder, thigh, or buttocks once as needed for anaphylaxis. 2 Syringe 0 7 Active cyanocobalamin (CVS VITAMIN B-12) 1000 MCG tablet Take by mouth. Active MULTIPLE VITAMIN PO Take by mouth. Active Semaglutide-Flornetino ght Management (WEGOVY SC) Inject under the skin. Active semaglutide (OZEMPIC) (0.25 or 0.5 mg/dose pen) prefilled pen injection Inject under the skin once a week. 04/02/20 24 Discontinu ed(Patient Discharge) Active Problems No known active problems Social History Tobacco Use Types Packs/Day Years Used Date Smoking Tobacco: Never Smokeless Tobacco: Never Tobacco Cessation:Counseling Given: Not Answered Alcohol Use Standard Drinks/Week Comments Yes 0 (1 standard drink = 0.6 oz pur e alcohol) Comments No Sex and Gender Information Value Date Recorded Sex Assigned at Female 01/10/2024 5:10 PM EDT Legal Sex Female 10:52 AM EDT Gender Identity Female 03/18/2022 3:04 PM EDT Sexual Orientation Not on file Last Filed Vital Signs Vital Sign Reading Time Taken Comments Blood Pressure 108/69 04/17/2024 9:53 AM EDT Pulse 68 04/17/2024 9:53 AM EDT Temperature 36.5 ??C (97.7 ??F) 04/17/2024 9:38 AM ED T Respiratory Rate 16 04/17/2024 9:53 AM EDT Oxygen Saturation 97% 04/17/2024 9:53 AM EDT Inhaled Oxygen Concentration - - Weight 65.8 kg (145 lb) 03/28/2024 7:52 AM EDT Height 166.4 cm (5' 5.5 ) 01/13/2024 2:03 PM EDT Body Mass Index 23.76 01/13/2024 2:03 PM EDT Plan of Treatment Health Maintenance Due Date Last Done Comments Hepatitis C Virus Screening 1968 HIV Screening 1981 DTaP/Tdap/Td Vaccines (1 - Tdap) 1987 Hepatitis B Vaccines (1 of 3 - 19+ 3-dose series) 1987 Mammogram 2008 Pneumococcal Vaccines 50+ (1 of 1 - PCV) 2018 Zoster (Shingles) Vaccine (1 of 2) 2018 COVID-19 Vaccine (2 - season) 2024 Influenza Vaccine 05/10/2025 07/18/2020 Pap Smear (Ages 21-65) 10/20/2026 , 03/18/2022, 02/12/2021 Colonoscopy 04/17/2034 04/17/2024 Procedures Procedure Name Priority Date/Time Associated Diagnosis Comments THINPREP PAP(NURSE PRACTITIONER PHYSICIAN ASSISTANT) HPV SCR RFX HPV 16,18/45 Routine 10/20/2023 12:00 AM EST from Last 3 Months or Most Recently Relevant to Health Maintenance Results * ThinPrep Pap(Certified Ophthalmic Assistant) HPV Scr Rfx HPV 16,18/45 (10/20/2023 12:00 AM EST) Report Report [facility] Comment: Final Gynecological Cytology Report ThinPrep Pap Test, HPV Screen, Reflex HPV Genotype SPECIMEN ADEQUACY: SATISFACTORY FOR EVALUATION. INTERPRETATION: NEGATIVE FOR INTRAEPITHELIAL LESION OR MALIGNANCY. Electronically Signed: ??Derek Ambrosio, CT (ASCP) CLINICAL INFORMATION: LMP: 10/10/2012 Clinical History: ??NG Biopsy Date: ??NG Specimen Source: ??Cervix, Endocervix Previous Pap Date: ??03/18/2022 HPV RESULTS: HPV mRNA E6/E7 ?? [id number] ?? Approved: 10/23/23 Negative ? REF RANGE: Negative CPT Codes: 56356 ICD Codes: Z01.419 10/20/2023 10/21/2023 10: 40 AM EST us Carolina Adkins DO LAB AMB PATH/CYTO ORDERABLES Fin al Result Performing Organization Address City/State/[facility] Co de Phone Number [facility] [address], [place] from Last 3 Months or Most Recently Relevant to Health Maintenance Insurance [facility]CIAL Care Teams Leather Piece Inspector Relationship Specialty Start Date End Date Toyin Ibarra MD [address] [place] [address] PCP - General Internal Medicine 11/02/23
--- OUTSIDE RECORDS SUMMARY | 2025-02-28 10:31 | XMS_ITS | Clinical Summary ---
Author Organization [facility] Address [address] [place] [address] Care Team Providers Care Construction Estimator Name Role Phone Toyin Ibarra MD Primary Care Provider [phone] Allergies Active Allergy Reactions Criticality Noted Date Comments Short Ragweed Pollen Ext Anaphylaxis High 05/02/2022 Medications Medication Sig Dispensed Refills Start Date End Date Status Loratadine 10 MG CAPS Take by mouth daily. 0 Active EPINEPHrine (EpiPen 2-Ernesto) 0.3 MG/0.3ML SOAJ Inject 0.3 mL (0.3 mg total) into the muscle. 0 07/07/2018 Active semaglutide-weight management (WEGOVY) 1.7 MG/0.75ML SOAJ subcutaneous auto-injector Inject 0.75 mL (1.7 mg total) under the skin every 7 days. 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 Discussed no reliable blood test for menopause and even if menopausal, no treatment necessary for it. Family History Medical History Relation Name Comments Aortic aneurysm Mother Breast cancer Mother Cancer Mother kidney and [address] st cancer Cervical cancer Neg Hx Colon cancer Neg Hx Ovarian cancer Neg Hx Uterine cancer Neg Hx Relation Name Status Comments Mother Alive Social History Tobacco Use Types Packs/Day Years Used Date Smoking Tobacco: Never Smokeless Tobacco: Never Tobacco Cessation:Counseling Given: Not Answered Alcohol Use Standard Drinks/Week Comments Not Currently 0 (1 standard drink = 0.6 oz pur e alcohol) Sex and Gender Information Value Date Recorded Sex Assigned at Female 04/14/2022 1:39 PM EDT Gender Identity Not on file Sexual Orientation Not on file Job Start Date Occupation Industry Not on file Not on file Not on file Last Filed Vital Signs Vital Sign Reading Time Taken Comments Blood Pressure 131/83 03/12/2024 2:08 PM EDT Pulse 84 03/12/2024 2:08 PM EDT Temperature 36.8 ??C (98.2 ??F) 2022 3:00 PM ED T Respiratory Rate 14 2022 3:30 PM EDT Oxygen Saturation 97% 12/12/2023 1:59 PM EST Inhaled Oxygen Concentration - - Weight 66.7 kg (147 lb) 03/12/2024 2:08 PM EDT Height 166.4 cm (5' 5.5 ) 03/12/2024 2:08 PM EDT Body Mass Index 24.09 03/12/2024 2:08 PM EDT Plan of Treatment Health Maintenance Due Date Last Done Comments Hepatitis B Vaccines (1 of 3 - 3-dose series) 1968 Hepatitis C Screening 1968 COVID-19 Vaccine (#1) 1968 Depression Screening 1980 BMI Counseling 1986 Colon Cancer Screening (Colonoscopy) 2013 Preventative Health Evaluation 12/17/2016 12/18/2015 Breast Cancer Screening (Mammogram) 2018 Shingrix-Zoster Vaccine (1 o f 2) 2018 DTap / Tdap / Td (2 - Td or Tdap) 06/02/2019 06/02/2009 Cervical Cancer Screening (Pap Smear) 07/19/2019 07/19/2016, 12/18/2015 Influenza Vaccine (#1) 2024 Pneumococcal Vaccine Aged Out No long er eligible based on patient's age to complete this topic RSV Ped < 20 months Aged Out No longe r eligible based on patient's age to complete this topic Medical Devices Implanted Type Area Plasterer Tender Device Identifier Shelf Expiration Date Model / Serial / Lot Sut Polyprp 2-0 Overstitch Apol-Manu [id number] - [id number] Implanted:Qty: 1 on 2022 by Derek Garcia MD at [facility] N/A: Mouth [employer] 06/22/2026 [id number] Care Teams Construction Estimator Relationship Specialty Start Date End Date Toyin Ibarra MD [address] [place] [address] PCP - General Internal Medicine 05/27/22
--- OUTSIDE RECORDS SUMMARY | 2025-02-28 10:31 | XMS_ITS | Encounter Summary ---
Author Organization [facility] Address [address] [place] [address] Care Team Providers Care Casting Tester Name Role Phone Toyin Ibarra MD Primary Care Provider [phone] Encounter Details Date Type Department Care Team (Late st Contact Info) Description 04/17/2024 Scanned Document [facility] [address] [place] [address] Anderson Dasilva MD [address] [facility] [address] [place] [address] Social History Tobacco Use Types Packs/Day Years [...] on filedocumented in this encounter Care Teams Casting Tester Relationship Specialty Start Date End Date Toyin Ibarra MD [address] [place] [address] PCP - General Internal Medicine 11/02/23 documented as of this encounter
--- OUTSIDE RECORDS SUMMARY | 2025-02-28 10:31 | XMS_ITS | Encounter Summary ---
Author Organization [facility] Address [address] [place] [address] Care Team Providers Care Custodial Engineer Name Role Phone Luann Tamayo MD Primary Care Provider Toyin Ibarra MD Primary Care Provider [phone] Encounter Details Date Type Department Care Team (Late st Contact Info) Description 12/31/2016 Scanned Document [facility] Bariatric Surgery [address] [place] [address] Celestine Ugalde MD [address] [place] [address] Social History Tobacco Use Types Packs/Day Years Used Date Smoking Tobacco: Never Assessed Comments Unknown Sex and Gender Information Value Date Recorded Sex Assigned at Female 01/10/2024 5:10 PM EDT Legal Sex Female 10:52 AM EDT Gender Identity Female 03/18/2022 3:04 PM EDT Sexual Orientation Not on file documented as of this encounter Plan of Treatment Not on file documented as of this encounter Visit Diagnoses Not on filedocumented in this encounter Care Teams Custodial Engineer Relationship Specialty Start Date End Date Luann Tamayo MD [address] [place] [address] PCP - General Internal Medicine 04/01/17 11/01/23 Toyin Ibarra MD [address] [place] [address] PCP - General Internal Medicine 11/02/23 documented as of this encounter
--- OUTSIDE RECORDS SUMMARY | 2025-02-28 10:31 | XMS_ITS | Encounter Summary ---
Author Organization [facility] Address [address] [place] [address] Care Team Providers Care Medical And Scientific Illustrator Name Role Phone Toyin Ibarra MD Primary Care Provider Encounter Details Date Type Department Care Team (Late st Contact Info) Description 04/13/[address] [facility] [address] [place] [phone] Trish Vieira APRN [address] [address] Social History Tobacco Use Types Packs/Day Years [...] on file documented as of this encounter Miscellaneous Notes * Telephone Encounter - Racquel Palafox - 04/13/2024 12:55 PM EDT Approved Adrienne [phone] tablets 04/13/2024 to 04/13/2027 Thank you * Telephone Encounter - Racquel Palafox - 04/13/2024 12:55 PM EDT ----- Message from Domitila Osman MA sent at 04/13/2024 8:20 AM EDT ----- Regarding: FW: Colonoscopy Prep / Kellie Alvarado Contact: This patient needs a PA done and her insurance will cover it due to her medical issues ----- Message ----- From: Kellie Alvarado Sent: 04/13/2024 7:16 AM EDT To: [facility] [place] Subject: Colonoscopy Prep / Kellie Pro? Apparently, the Tomlinson Tab prescription needs pre approval to be sent to my insurance company [employer] for the script to be filled. Can it please be sent today by someone in the office? I checked with [facility] and they got it on stock but apparently the hold up is the required pre-approval. documented in this encounter Plan of Treatment Not on file documented as of this encounter Visit Diagnoses Not on filedocumented in this encounter Care Teams Medical And Scientific Illustrator Relationship Specialty Start Date End Date Toyin Ibarra MD [address] [place] [address] PCP - General Internal Medicine 11/02/23 documented as of this encounter
== END 2025-02-28 11:26 | disposition home or self-care (01) ==
LOC: HO.HMCC 10:09
PROVIDERS: Visit Provider Internal Medicine
DX: Z00.01 Encounter for general adult medical examination with abnormal findings (principal); M85.88 Other specified disorders of bone density and structure, other site; Z98.84 Bariatric surgery status; F41.1 Generalized anxiety disorder; Z71.89 Other specified counseling; Z00.00 Encounter for general adult medical examination without abnormal findings

== ENCOUNTER → 2025-02-28 10:08 | Outpatient (BNVA) | payer OTHER, SELFPAY | PROVIDERS: Visit Provider Internal Medicine | DX: Z00.01 Encounter for general adult medical examination with abnormal findings (principal); M85.88 Other specified disorders of bone density and structure, other site; F41.1 Generalized anxiety disorder; Z71.89 Other specified counseling; Z98.84 Bariatric surgery status | CPT/HCPCS: 96127 ==

== ENCOUNTER 2025-03-02 07:50 | Outpatient (REF) | payer OTHER, SELFPAY ==
[2025-03-02 11:05] LABS: MANUAL DIFF FLAG NO
[2025-03-02 11:10] LABS: Basophils Percent Auto 0.5 % (0-2); Eosinophils Absolute Auto 0.1 X10*3/uL (0.0-0.4); Eosinophils Percent Auto 1.6 % (0-4); Hematocrit 41.2 % (37.0-47.0); Hemoglobin 14.2 g/dl (12.0-16.0); Imm Gran Abs Auto 0.01 X10*3/uL (0.00-0.03); Imm Gran Pct Auto 0.2 % (0.0-0.4); Lymphocytes Percent Auto 46.2 % (20-40); Mean Corpuscular HGB Conc 34.5 g/dl (31.0-35.0); Mean Corpuscular Hemoglobin 30.3 pg (27.0-33.0); Mean Platelet Volume 10.2 fL (9.4-12.3); Monocytes Absolute Auto 0.3 X10*3/uL (0.1-1.2); Monocytes Percent Auto 7.1 % (2-11); Neutrophils Percent Auto 44.4 % (45-73); Platelet Count 291 X10*3/uL (160-400); Red Blood Count 4.68 X10*6/uL (4.20-5.50); Red Cell Distribution Width 11.9 % (11.0-16.0); White Blood Count 4.4 X10*3/uL (4.8-10.8)
[2025-03-02 11:34] LABS: Alanine Aminotransferase 27 U/L (0-31); Albumin Level 4.2 g/dL (3.5-5.0); Alkaline Phosphatase 86 U/L (39-117); Anion Gap 12 (12-20); Aspartate Amino Transferase 26 U/L (5-31); Bilirubin Total 0.7 mg/dL (0.0-1.0); Blood Urea Nitrogen 24 mg/dL (9-16); Calcium 9.4 mg/dL (8.4-10.2); Carbon Dioxide 27 mmol/L (22-29); Chloride 106 mmol/L (96-108); Cholesterol 161 mg/dL (<200); Estimated Glomerular Filt Rate > 60; Glucose Fasting 85 mg/dL (60-99); HDL Cholesterol 58 mg/dL (>40); LDL Cholesterol Calculated 95 mg/dL (<100); Potassium 4.6 mmol/L (3.3-5.1); Sodium 140 mmol/L (135-145); Total Protein 7.1 g/dL (6.5-8.0); Triglycerides 44 mg/dL (<150)
[2025-03-02 11:41] LABS: Vitamin D 25-OH Total 104.9 ng/mL (>30)
[2025-03-02 12:03] LABS: Folate 13.4 ng/mL (> or = 4.0); Vitamin B12 > 2000 pg/mL (200-900)
== END 2025-03-02 07:51 | disposition home or self-care (01) ==
LOC: HO.HMGCLDS 07:50
PROVIDERS: PCP Internal Medicine; Visit Provider Internal Medicine
DX: Z00.01 Encounter for general adult medical examination with abnormal findings (principal); Z71.89 Other specified counseling; F41.1 Generalized anxiety disorder; G47.9 Sleep disorder, unspecified; M85.88 Other specified disorders of bone density and structure, other site; Z98.84 Bariatric surgery status; Z87.19 Personal history of other diseases of the digestive system; Z13.6 Encounter for screening for cardiovascular disorders
CPT/HCPCS: 36415; 80053; 80061; 82306; 82607; 82746; 84443; 85025

== ENCOUNTER 2025-03-13 10:08 | Outpatient (REF) | payer OTHER, SELFPAY ==
--- NOTE | ~2025-03-13 | MM_ITS ---
EXAMINATION: DXA BONE DENSITY AXIAL HISTORY: M85.88 - Other specified disorders of bone density and structure, other ... TECHNIQUE: Carbon Digital Dual energy absorptiometry (DEXA) of the lumbar spine, total left hip, and femoral neck was performed. COMPARISON: There are no prior studies for comparison. FINDINGS: The bone mineral density of the lumbar spine is 0.951, corresponding to a T-score of -1.9, and a Z-score of -1.2. This is indicative of osteopenia. The bone mineral density of the left total hip is 0.750, corresponding to a T-score of -2.0, and a Z-score of -1.4. This is indicative of osteopenia. The bone mineral density of the left femoral neck is 0.729, corresponding to a T-score of -2.2, and a Z-score of -1.3. This is indicative of osteopenia. FRACTURE RISK: The FRAX index suggests a risk of major osteoporotic fracture of 9.3%, and of hip fracture 1.4%. MM/XR DEXA axial skeleton IMPRESSION: Based on bone mineral density, and according to World Health Organization (WHO) criteria, the diagnosis is consistent with osteopenia. All bone density values are in grams per centimeter squared (g/cm2). Statistically, 68% of repeat scans fall within 1 SD (+/- 0.010 g/cm2 for AP spine L1-L4) and 1 SD (+/- 0.012 g/cm2 for femur total) FRAX is a trademark of the [employer] [place] for Metabolic Bone Disease, a World Health Organization (WHO) Collaborating Center. Electronically signed by: El Yadav MD 03/13/2025 01:45 PM EDT
--- OUTSIDE RECORDS SUMMARY | 2025-03-13 10:46 | XMS_ITS | Encounter Summary ---
Author Organization [facility] Address [address] [place] [address] Care Team Providers Care Digital Watch Assembler Name Role Phone Toyin Ibarra MD Primary Care Provider [phone] Encounter Details Date Type Department Care Team (Late st Contact Info) Description 04/13/2024 Telephone [facility] [address] [place] [phone] Trish Vieira APRN [address] [address] Social History Tobacco Use Types Packs/Day Years [...] - 04/13/2024 12:55 PM EDT Approved Adrienne [phone] tablets 04/13/2024 to 04/13/2027 Thank you * [...] Sent: 04/13/2024 7:16 AM EDT To: [facility] [place] Subject: Colonoscopy Prep / Kellie Pro? Apparently, the Tomlinson Tab prescription needs pre approval to be sent to my insurance company [employer] for the script to be filled. Can it please be sent today by someone in the office? [facility] and they got it on stock but apparently the hold up is the required pre-approval. documented in this encounter Plan of Treatment Not on file documented as of this encounter Visit Diagnoses Not on filedocumented in this encounter Care Teams Digital Watch Assembler Relationship Specialty Start Date End Date Toyin Ibarra MD [address] [place] [address] PCP - General Internal Medicine 11/02/23 documented as of this encounter
== END 2025-03-13 10:09 | disposition home or self-care (01) ==
LOC: HO.MAMMO 10:08
PROVIDERS: PCP Internal Medicine; Visit Provider Internal Medicine
DX: Z13.820 Encounter for screening for osteoporosis (principal); M85.88 Other specified disorders of bone density and structure, other site; Z78.0 Asymptomatic menopausal state; Z98.84 Bariatric surgery status; Z87.19 Personal history of other diseases of the digestive system
CPT/HCPCS: 77080

== ENCOUNTER → 2025-03-13 10:30 | Outpatient (BNV) | payer OTHER, SELFPAY | PROVIDERS: PCP Internal Medicine; Visit Provider Radiology Diagnostic Radiology | DX: E28.39 Other primary ovarian failure (principal) | CPT/HCPCS: 77080 ==

== ENCOUNTER 2025-04-26 07:46 | Outpatient (AMB) | payer OTHER, SELFPAY ==
--- OUTSIDE RECORDS SUMMARY | 2025-04-26 07:49 | XMS_ITS ---
Author Name [facility] Organization Unknown Results Test Name/Text Value Interpretation Date Range Source VITAMIN C 12.0 Normal 12/12/2023 [facility] VITAMIN B1 (THIAMINE) 58.0 Normal 12/13/2023 [facility] RBC NO. BLD AUTO 4.49 M/uL Normal 12/07/2023 4.2 - 5.4 [facility] EOSINOPHIL NFR BLD AUTO 1.1 % Normal 12/07/2023 0 - 6 [facility] NEUTROPHILS NO. BLD AUTO 2.3 K/uL Normal 12/07/2023 1.8 - 7.8 [facility] MONOCYTES NFR BLD AUTO 5.7 % Normal 12/07/2023 2 - 12 [facility] MONOCYTES NO. BLD AUTO 0.3 K/uL Normal 12/07/2023 0 - 0. 8 [facility] EOSINOPHIL NO. BLD AUTO 0.1 K/uL Normal 12/07/2023 0 - 0 .5 [facility] RDW RBC AUTO RTO 13.0 % Normal 12/07/2023 12.1 - 16.2 [facility] HGB BLD MCNC 14.3 g/dL Normal 12/07/2023 12.5 - 16 [facility] H HCT VFR BLD AUTO 40.2 % Normal 12/07/2023 37 - [address] [facility] LYMPHOCYTES NFR BLD AUTO 43.2 % Normal 12/07/2023 20 - 48 [facility] MCHC RBC AUTO MCNC 35.5 g/dL Normal 12/07/2023 32 - 36 [facility] WBC NO. BLD AUTO 4.8 K/uL Normal 12/07/2023 4 - 10.5 [facility] PMV BLD AUTO 8.8 fL Normal 12/07/2023 7.4 - 11.4 [facility] BASOPHILS IN BLOOD BY AUTOMATED COUNT 0.0 K/uL Normal 12/07/2023 0 - 0.2 [facility] MCV RBC AUTO 89.4 fL Normal 12/07/2023 78 - 100 [facility] BASOPHILS NFR BLD AUTO 0.6 % Normal 12/07/2023 0 - 2 [facility] PLATELET NO. BLD AUTO 277.0 K/uL Normal 12/07/2023 150 - 450 [facility] DIFFERENTIAL TYPE AUTOMATED Normal 12/07/2023 [facility] MCH RBC QN AUTO 31.7 pg Normal 12/07/2023 25 - 33 [facility] NEUTROPHILS NFR BLD AUTO 49.4 % Normal 12/07/2023 44 - 74 [facility] LYMPHOCYTES NO. BLD AUTO 2.1 K/uL Normal 12/07/2023 1 - 3.2 [facility] IRON SATN MFR SERPL 36.0 % Normal 12/07/2023 20 - 45 [facility] TIBC SERPL MCNC 411.0 ug/dL Normal 12/07/2023 250 - 450 [facility] UIBC SERPL MCNC 261.0 ug/dL Normal 12/07/2023 155 - 355 [facility] IRON SERPL MCNC 150.0 mcg/dL Normal 12/07/2023 37 - 170 [facility] PROT SERPL MCNC 6.5 g/dL Normal 12/07/2023 6.4 - 8.5 [facility] BILIRUB SERPL MCNC 0.7 mg/dL Normal 12/07/2023 0.3 - 1 [facility] ANION GAP SERPL SCNC 8.0 mmol/L Normal 12/07/2023 5 - 14 [facility] POTASSIUM SERPL SCNC 4.5 mmol/L Normal 12/07/2023 3.5 - 5 .1 [facility] GLUCOSE SERPL MCNC 87.0 mg/dL Normal 12/07/2023 70 - 199 [facility] Glomerular filtration rate/1.73 sq M. predicted 87.0 Normal 12/07/2023 60 - [facility] SODIUM SERPL SCNC 141.0 mmol/L Normal 12/07/2023 135 - 14 5 [facility] CALCIUM SERPL MCNC 9.5 mg/dL Normal 12/07/2023 8.4 - 10.2 [facility] ALP SERPL-CCNC 66.0 U/L Normal 12/07/2023 34 - 104 [facility] CHLORIDE SERPL SCNC 103.0 mmol/L Normal 12/07/2023 98 - 1 07 [facility] ALBUMIN SERPL BCG MCNC 4.5 g/dL Normal 12/07/2023 3.5 - 5 [facility] AST SERPL CCNC 15.0 U/L Normal 12/07/2023 5 - 40 [facility] ALT SERPL CCNC 18.0 U/L Normal 12/07/2023 7 - 52 [facility] CREAT SERPL MCNC 0.8 mg/dL Normal 12/07/2023 0.5 - 1 [facility] BUN SERPL MCNC 13.0 mg/dL Normal 12/07/2023 7 - 17 [facility] HCO3 SER SCNC 30.0 mmol/L Normal 12/07/2023 24 - 32 [facility] VIT B12 SER MCNC 4424.0 pg/mL Above high normal 12/07/2023 1 80 - 914 [facility] 25(OH)D3+25(OH)D2 SerPl IA-mCnc 46.0 ng/mL Normal 12/07/2023 30 - 100 [facility] History of Medication [...] mg capsule Take by mouth daily. active Allergies Allergen Reaction Severity Comment Documented Date Source Statu s RAGWEED POLLEN ANAPHYLAXIS Short Ragweed Pollen Ext 05/02/2022 [facility] active SHORT RAGWEED POLLEN EXT ANAPHYLAXIS 05/02/2022 [facility] active MELON ANAPHYLAXIS 05/15/2018 [facility] active Problems Problem Status Onset Date Problem Type Date of Resolution Source RLQ abdominal pain active 2023-11-14 ProblemAct [facility] Snoring active 2022-05-25 ProblemAct [facility] History of obesity active EncounterDiagnosisAct [facility] Weight gain following gastric bypass surgery active 2015-12-01 ProblemAct [facility] Encounter for weight management active EncounterDiagnosisAct [facility] MG Epigastric pain active 2023-11-[address] [facility] Insomnia active 2022-05-25 ProblemAct [facility] Gastric bypass status for obesity active 2015-12-01 ProblemAct [facility] Low back pain with sciatica active 2015-12-01 ProblemAct [facility] Papanicolaou smear of cervix with low grade squamous intraepithelial lesion (LGSIL) active 2016-01-05 ProblemAct [facility] RLQ abdominal pain active 2023-11-14 ProblemAct [facility] Epigastric pain active 2023-11-[address] [facility] Papanicolaou smear of cervix with low grade squamous intraepithelial lesion (LGSIL) active 2016-01-05 ProblemAct [facility] Gastric bypass status for obesity active 2015-12-01 ProblemAct [facility] Encounters Encounter Type Encounter Reason Primary Diagnosis Location Date Ambulatory Weight Management Weight Management [facility] 12/13/2024 Ambulatory SCREENING SCREENING [facility] 11/27/2024 Ambulatory Weight Management Weight Management 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) (routine) w/o abn findings [facility] 10/20/2023 Ambulatory [facility] 09/15/2022 Ambulatory [facility] 03/18/2022 Care Team Organization Name Specialty Phone Email Start Date End Da te [facility] 12/19/2024 02/25/2025 [facility] 09/17/2024 [facility] 09/14/2024 [facility] 01/13/2024 12/26/2024 [facility] Primary Care 12/07/2023 04/23/2025 [facility] Primary Care 11/17/2023 [facility] Primary Care 11/02/2023 [facility] No provided Primary Care 10/24/2023 10/24/2023 [facility] provided No Primary Care 09/05/2023 02/25/2025 [facility] 09/15/2022 02/25/2025 [facility] 09/15/2022 09/15/2022 [facility] 03/23/202204/25 [facility] 03/18/202203/18
--- OUTSIDE RECORDS SUMMARY | 2025-04-26 07:49 | XMS_ITS | Encounter Summary ---
Author Organization [facility] Address [address] [place] [address] Care Team Providers Care Hand Rug Braider Name Role Phone Toyin Ibarra MD Primary Care Provider Encounter Details Date Type Department Care Team (Late st Contact Info) Description 04/13/2024 Telephone [facility] [address] [place] [id number] Trish Vieira APRN [address] [address] Social History Tobacco Use Types Packs/Day Years [...] - 04/13/2024 12:55 PM EDT Approved Adrienne [phone] tablets 04/13/2024 to 04/13/2027 Thank you * [...] Sent: 04/13/2024 7:16 AM EDT To: [facility] Subject: Colonoscopy Prep / Kellie Pro? Apparently, the [place] Tab prescription needs pre approval to be sent to my insurance company [employer] for the script to be filled. Can it please be sent today by someone in the office? I checked with [facility] and they got it on stock but apparently the hold up is the required pre-approval. documented in this encounter Plan of Treatment Not on file documented as of this encounter Visit Diagnoses Not on filedocumented in this encounter Care Teams Hand Rug Braider Relationship Specialty Start Date End Date Toyin Ibarra MD [address] [place] [address] PCP - General Internal Medicine 11/02/23 documented as of this encounter
--- OUTSIDE RECORDS SUMMARY | 2025-04-26 07:49 | XMS_ITS | Clinical Summary ---
Author Organization [facility] Address [address] [place] [address] Care Team Providers Care Cloth Feeder Name Role Phone Toyin Ibarra MD Primary Care Provider [phone] Allergies Active Allergy Reactions Criticality Noted Date [...] syndrome 06/07/2022 01/31/2023 BMI 33.0-33.9,adult 05/06/2022 02/01/20 Encounter for routine gyneco logical examination 12/18/2015 [...] 84 03/12/2024 2:08 PM EDT Temperature 36.8 C (98.2 F) 2022 3:00 PM EDT Respiratory Rate 14 2022 3:30 PM EDT [...] Smear) 07/19/2019 07/19/2016, 12/18/2015 Influenza Vaccine (#1) 2025 Pneumococcal Vaccine Aged Out No long er eligible based on patient's age to complete this topic RSV Ped < 20 months Aged Out No longe r eligible based on patient's age to complete this topic Medical Devices Implanted Type Area Sewer Pipe Offbearer Device Identifier Shelf Expiration Date Model / Serial / Lot Sut Polyprp 2-0 Overstitch Apol-Manu [id number] - [id number] Implanted:Qty: 1 on 2022 [place] [facility]A: Mouth [employer] 06/22/2026 [id number] Care Teams Cloth Feeder Relationship Specialty Start Date End Date Toyin Ibarra MD [address] [place] [id number] PCP - General Internal Medicine 05/27/22
--- OUTSIDE RECORDS SUMMARY | 2025-04-26 07:49 | XMS_ITS | Clinical Summary ---
Author Organization [address] Address [address] [place] [id number] Phone Care Team Providers Care Playroom Attendant Name Role Phone Toyin Ibarra MD Primary Care Provider [phone] Allergies Active Allergy Reactions Criticality Noted Date Comments Ragweed Pollen Anaphylaxis High 05/02/2022 Short Ragweed Pollen Ext Medications EPINEPHrine (EPIPEN) 0.3 mg/0.3 mL injection Inject 0.3 mL (0.3 mg total) into the muscle. 8 Active loratadine 10 mg capsule Take by mouth daily. Active doxepin (SILENOR) 6 mg tablet take 1 tablet by mouth every day at bedtime as needed sleep 4 Active semaglutide (Wegovy) 1.7 mg/0.75 mL injection penIndications :History of obesity INJECT 1.7 MG UNDER THE SKIN EVERY 7 (SEVEN) DAYS. 3 mL 3 5 Active semaglutide (WEGOVY) 1.7 mg/0.75 mL injection penIndications :History of obesity Inject 1.7 mg under the skin every 7 (seven) days. 3 mL 3 5 04/01/20 25 Discontinued Active Problems Problem Noted Date Diagnosed Date Epigastric pain 11/14/2023 RLQ abdominal pain 11/14/2023 Snoring 05/25/2022 Insomnia 05/25/2022 Papanicolaou smear of cervix with low grade squamous intraepithelial lesion (LGSIL) 01/05/2016 Overview (06/05/2024): Last Assessment & Plan: Check repeat pap If stable or improved repeat pap at annual in 6 months Low back pain with sciatica 12/01/2015 Surgical History Surgery Date Site/Laterality Comments BARIATRIC SURGERY 2011 PROCEDURE:BARIATRIC SURGERY BREAST BIOPSY PROCEDURE:BREAST BIOPSY UPPER GASTROINTESTINAL ENDOSCOPY 06/01/2022 N/A PROCEDURE:UPPER GASTROINTESTINAL ENDOSCOPY;COMMENT:Procedure: EGD WITH BIOPSY; Surgeon: Derek Garcia MD; Location: [facility]; Service: Bariatrics; Laterality: N/A; GASTROJEJUNOSTOMY 2022 N/A PROCEDURE:GASTROJEJUNOSTOMY;C OMMENT:Procedure: REVISION GASTROJEJUNOSTOMY; Surgeon: Derek Garcia MD; Location: [facility]; Service: Bariatrics; Laterality: N/A; UPPER GASTROINTESTINAL ENDOSCOPY 2022 N/A PROCEDURE:UPPER GASTROINTESTINAL ENDOSCOPY;COMMENT:Procedure: OVERSTITCH WITH EGD WITH ABLATION (22442); Surgeon: Derek Garcia MD; Location: [facility]; Service: Bariatrics; Laterality: N/A; GASTRIC BYPASS 10/2011 Medical History Medical History Date Comments Fibroadenoma of breast DX:Fibroa denoma of breast;COMMENT:s/p biopsy Angina pectoris (CMS/HCC V24) DX :Angina pectoris (HCC);COMMENT: tightness in chest Urinary tract infection DX:Urina [...] 12/13/2024 10:14 AM EST Plan of Treatment Health Maintenance Due Date Last Done Comments Breast Cancer Screening 1968 Hepatitis B Vaccines (1 of 3 - 19+ 3-dose series) 1987 Zoster Vaccines (1 of 2) 1987 Pneumococcal Vaccine: 50+ Years (1 of 1 - PCV) 2018 DTaP,Tdap,and Td Vaccines (2 - Td or Tdap) 06/02/2019 06/02/2009 Colorectal Cancer Screening: Colonoscopy 09/18/2022 Depression Screening 09/18/2022 HIV Screening 09/18/2022 Hepatitis C Screening 09/18/2022 Social Influencers of Health Screening 09/18/2022 COVID-19 Vaccine (2 - Modern a risk series) 08/20/2023 07/23/2023 Influenza Vaccine (#1) 2025 Cholesterol Screening (Lipid Panel) 11/22/2027 11/22/2022, [...] this topic Medical Devices Implanted Type Area Marketing Instructor Device Identifier Shelf Expiration Date Model / Serial / Lot Sut Polyprp 2-0 Overstitch Haydee [id number] Implanted:Qty: 1 on 2022 by Derek Garcia MD N/A: Mouth [employer] 06/22/2026 [id number] Procedures Procedure Name Priority Date/Time Associated Diagnosis Comments HPV Routine 10/20/2023 LIPID PANEL Routine 11/22/2022 from Last 3 Months or Most Recently Relevant to Health Maintenance Results * Cervical Cancer Screening: HPV (10/20/2023) Pathologist [facility] Cervical Cancer Screening: HPV No interpreation, abstracted Historical Provider HEALTH MAINTENANCE Final Result * (ABNORMAL) Lipid panel (11/22/2022) Pathologist [facility] Triglycerides 98 <=150 mg/dL Cholesterol 204(A) 0 - 200 mg/dL HDL 63 37 - 92 mg/dL LDL Cholesterol 121 50 - 130 mg/dL Blood Venous blood specimen / Unknown Historical Provider LAB BLOOD ORDERABLES Rehana l Result from Last 3 Months or Most Recently Relevant to Health Maintenance Insurance [facility] Care Teams Playroom Attendant Relationship Specialty Start Date End Date Toiyn Ibarra MD [address] [facility] [place] [address] PCP - General Internal Medicine 05/27/22
--- NOTE | 2025-04-26 08:30 | MHC.PC.OV ---
Intake Visit Reasons: TV follow up anxiety Intake Note: pt is here for for follow up on anxiety, she had stopped the buspirone due to having a reaction to it, stated her vision changed and had dizziness. Data Support Analyst Required: No Accompanied by: Self / Same As Patient Allergies melon (MELON) Allergy (Severe, Verified 04/26/25 09:04) ANAPHYLAXIS nitrofurantoin (From Macrobid) Allergy (Intermediate, Verified 04/26/25 09:04) Rash buspirone Allergy (Mild, Verified 04/26/25 09:04) Blurry Vision 1st Base Allergy (Unknown, Uncoded 04/26/25 09:04) anaphylaxis Medication List - Last Reconciled 04/26/25 by Toyin Ibarra MD mecobalamin (vitamin B12) mcg PO omcozqveprcu-llw-qwjs-FA-vit K 45 mg iron- 800 mcg-120 mcg (Bariatric Multivitamins) caps PO semaglutide (weight loss) (Wegovy) mg subcut Tobacco use date assessed: 02/28/25 Dental Screening Dental Screen Date: 02/28/25 HPI TV follow up anxiety HPI Details 54-year-old lady here today follow-up on her generalized anxiety disorder. Was started on buspirone on last visit but developed vision changes dizziness after taking the medication for several days. Her symptoms resolved immediately after stopping buspirone. Still has been having anxiety attacks, with triggers still present, she did mentioned that she was on bupropion in the past which has helped. [facility] Medical History History of dumping syndrome Osteopenia of lumbar spine History of obesity Repeated interruption of sleep during rapid eye movement stage Generalized anxiety disorder Surgical History History of Homar-en-Y gastric bypass History of lumpectomy of left breast H/O gastric bypass Family History Father No problems noted. Mother CVD (cardiovascular disease) Cancer Aneurysm, ascending aorta Sister Substance use disorder Sister No problems noted. Social History Housing: House Patient Tobacco Use Status: Never used Tobacco e-Cigarette/Vaping Use: Never Used Current occupational status: employed Cognitive needs: No Hearing needs: No Vision needs: Yes Questionnaire PHQ-9 Over the last 2 weeks, how often have you been bothered by any of the following problems? 1. Little interest or pleasure in doing things: not at all 2. Feeling down, depressed, or hopeless: several days 3. Trouble falling or staying asleep, or sleeping too much: nearly every day 4. Feeling tired or having little energy: several days 5. Poor appetite or overeating: not at all 6. Feeling bad about yourself - or that you are a failure or have let yourself or your family down: several days 7. Trouble concentrating on things, such as reading the newspaper or watching television: several days 8. Moving or speaking so slowly that other people could have noticed. Or the opposite - being so fidgety or restless that you have been moving around a lot more than usual: not at all 9. Thoughts that you would be better off or of hurting yourself in some way: not at all Total score: 7 Depression Screening Interpretation: Negative Depression Screening Done: Yes 23645 - PHQ-9 Billing: Yes Source: Developed by Drs. El Adair, Opal Awad, Abraham Parker and colleagues, with an educational emily from [email or web address]. Thrive Questionnaire Date Thrive assessed: 02/22/25 I am a: Patient What is your living situation today?: I have a steady place to live Within the past 12 months, did the food you bought not last and you didn't have the money to get more?: Never true Within the past 12 months, did you worry whether your food would run out before you got money to buy more?: Never true Do you have trouble paying for medicines?: No Do you have trouble getting transportation to medical appointments?: No Do you have trouble paying your heating and electricity bill?: No Do you have trouble taking care of your child, family member or friend?: No Do you have trouble with day-to-day activities such as bathing, preparing meals, shopping, managing finances, etc.?: No Are you currently unemployed and looking for a job?: No Are you interested in more education?: No Please select the resources that you would like help with: None Currently or been in a relationship where the following occur: No concerns reported THRIVE Score: 0 PINKY-7 AMB Questionnaire PINKY-7 Date PINKY - 7 assessed: 04/26/25 Feeling nervous, anxious, or on edge: 3 = Nearly every day Not being able to stop or control worryin = More than half the days Worrying too much about different things: 2 = More than half the days Trouble relaxin = Several days Being so restless that it is hard to sit still: 0 = Not at all Becoming easily annoyed or irritable: 1 = Several days Feeling afraid as if something awful might happen: 2 = More than half the days Total PINKY-7 score (0-4 normal; 5-9 mild; 10-14 moderate; 15-21 severe): 11 Source: Developed by Drs. El Adair, Opal Awad, Abraham Parker and colleagues, with an educational emily from [email or web address]. PINKY-7 Assessment Billing PINKY-7 Assessment Tool: PINKY-7 Assessment 84111 Review of Systems Const Reports no additional complaints ENT Reports no additional complaints Card Reports no additional complaints Resp Reports no additional complaints GI Reports no additional complaints Reports no additional complaints Musc Reports no additional complaints Skin/Breast Denies breast pain, Denies breast mass and Denies rash Neuro Reports no additional complaints Psych Reports as per HPI Endo Reports no additional complaints Tico/Lymph Reports no additional complaints Aller/Immun Reports no additional complaints Physical exam (Primary Care) Tobacco/Smoking Status: Tobacco use Status Tobacco use date assessed 02/28/25 04/26/25 08:35 Patient Tobacco Use Status Never used Tobacco 04/26/25 08:35 e-Cigarette/Vaping Use Never Used 04/26/25 08:35 PHQ-9: PHQ-9 Score PHQ-9: Total score 7 04/26/25 09:15 Depression Screening Interpretation: Negative Thrive Assessment: Date of Thrive Assessment Date Thrive assessed 02/22/25 04/26/25 08:35 Currently or been in a relationship where the following occur: No concerns reported Telehealth Telehealth Telehealth Platform: [facility] Location of provider rendering services: practice address Location of patient: address on file Patient Identification confirmed using: Name, : Yes Telehealth method: voice only Patient verbally consented to treatment: Yes Patient verbally consented to billing insurance company: Yes Patient informed of any privacy concerns related to visit: Yes Minutes spent on Phone/Video with Pt.: 15 Coding Level of Care Code Tele Est Pt Level 4 (87827) Diagnoses Generalized anxiety disorder F41.1 Additional Codes PINKY-7 Assessment Billing - PINKY-7 Assessment Tool: PINKY-7 Assessment 87614 ([id number]) PHQ-9 - 09917 - PHQ-9 Billing: Yes ([id number]) Assessment & Plan Assessment & Plan (1) Generalized anxiety disorder: Code(s): F41.1 - Generalized anxiety disorder Category: Medical Plan: Stopped buspirone due to side effects. Started on bupropion SR 100 mg per tablet to take once a day in a.m. discussed possible side effects of medication which may also include insomnia and appetite suppression. Will see her back for follow-up in 2 months via tele health Medications: New bupropion HCl SR 100 mg PO QAM 30 tabs 2RF
== END 2025-04-26 10:09 | disposition home or self-care (01) ==
LOC: HO.HMCC 07:47
PROVIDERS: Visit Provider Internal Medicine
DX: F41.1 Generalized anxiety disorder (principal)

== ENCOUNTER → 2025-04-26 07:46 | Outpatient (BNVA) | payer OTHER, SELFPAY | PROVIDERS: Visit Provider Internal Medicine | DX: F41.1 Generalized anxiety disorder (principal); Z13.31 Encounter for screening for depression; Z13.39 Encounter for screening examination for other mental health and behavioral disorders | CPT/HCPCS: 96127 ==